=== PATIENT | male | born 1975 | race Caucasian/White ===

== ENCOUNTER 2019-11-26 23:08 | Emergency (ER) | payer OTHER ==
[~2019-11-26] VITALS: Ht 167.6 cm; Wt 99.8 kg
[2019-11-26 23:16] VITALS: BP 149/89
[2019-11-26] MEDS ORDERED: LIDOCAINE VISCOUS 2% 20 ML UDC MM ONE (23:55)
[2019-11-27 00:06] VITALS: BP 154/86
--- NOTE | 2019-11-27 00:07 | NUR ---
Patient discharged with v/s stable. Written and verbal after care instructions given and explained. Patient verbalized understanding. Ambulatory with steady gait. All questions addressed prior to discharge. Advised to follow up with PMD.
== END 2019-11-27 00:07 | disposition home or self-care (01) ==
LOC: MED 23:08
DX: J38.7 Other diseases of larynx (principal)
CPT/HCPCS: 99284

== ENCOUNTER 2020-04-06 17:02 | Emergency (ER) | payer OTHER ==
[~2020-04-06] VITALS: Ht 167.6 cm; Wt 106.6 kg
[2020-04-06 17:19] VITALS: BP 156/91
--- NOTE | 2020-04-06 17:50 | NUR ---
To ED bed 06
--- NOTE | 2020-04-06 17:59 | NUR ---
44 year old male c/o lower back pain that started x 3 days. states pain is progressively getting worse. ROM intact. denies dysuria. denies any other s/sx. pmhx: denies nka
[2020-04-06] MEDS ORDERED: KETOROLAC 30 MG/ML VIAL IM ONE (18:10)
[2020-04-06] MEDS ORDERED: diazePAM 5 MG TAB PO ONE (18:10)
--- NOTE | 2020-04-06 18:28 | NUR ---
pt taken to xray via w/c
--- NOTE | 2020-04-06 18:30 | NUR ---
returned from xr
[2020-04-06 19:27] LABS: APPEARANCE,URINE HAZY (CLEAR); BILIRUBIN,URINE NEGATIVE (NEGATIVE); BLOOD, URINE TRACE-I (NEGATIVE); COLOR,URINE YELLOW (YELLOW); LEUKOCYTE ESTERASE ,URINE NEGATIVE (NEGATIVE); NITRITE, URINE NEGATIVE (NEGATIVE); PH,URINE 6.5 (5.0-9.0); UGLUCOSE NEGATIVE (NEGATIVE)
--- NOTE | 2020-04-06 19:30 | NUR ---
REPORT RECEIVED FROM PRINCESS FONG FOR CONTINUATION OF CARE.
[2020-04-06 19:43] LABS: WBC,URINE 0-5 /HPF (0-5)
--- NOTE | 2020-04-06 21:05 | NUR ---
PT STATES PAIN IS GONE AT THIS TIME, ERMD MADE AWARE OF PT STATUS.
[2020-04-06 21:13] VITALS: BP 138/85
--- NOTE | 2020-04-06 21:13 | NUR ---
Patient discharged with v/s stable. Written and verbal after care instructions given and explained. Patient alert, oriented and verbalized understanding of instructions. Ambulatory with steady gait. All questions addressed prior to discharge. ID band removed. Patient advised to follow up with PMD. Rx of LIDODERM, NAPROSYNN & VALIUM given. Patient educated on indication of medication including possible reaction and side effects. Opportunity to ask questions provided and answered.
== END 2020-04-06 21:13 | disposition home or self-care (01) ==
LOC: MED 17:02
DX: M54.5 Low back pain (principal)
CPT/HCPCS: 72100; 74176; 81001; 87086; 96372; 99285; J1885; Q0092; 99284

== ENCOUNTER 2021-02-16 15:33 | Emergency (ER) | payer OTHER ==
[~2021-02-16] VITALS: Ht 170.2 cm; Wt 108.9 kg
[2021-02-16 15:43] VITALS: BP 141/96
--- NOTE | 2021-02-16 16:30 | NUR ---
NO ANSWER WHEN CALLED.
--- NOTE | 2021-02-16 17:56 | NUR ---
PT CAME BACK TO ER ADMITTING WINDOW SEEKING TREATMENT.
[2021-02-16] MEDS ORDERED: OMEP40EC23 PO (18:18)
== END 2021-02-16 16:30 | disposition left against medical advice (07) ==
LOC: MED 15:33
DX: R10.13 Epigastric pain (principal); Z53.21 Procedure and treatment not carried out due to patient leaving prior to being seen by health care provider
CPT/HCPCS: 93005

== ENCOUNTER 2021-02-16 18:14 | Emergency (ER) | payer OTHER ==
[2021-02-16] MEDS ORDERED: OMEP40EC23 PO (18:18)
--- NOTE | 2021-02-16 18:35 | NUR ---
NO NURSING CARE RENDERED
--- NOTE | 2021-02-16 18:51 | NUR ---
Patient discharged with v/s stable. Written and verbal after care instructions given and explained. Patient alert, oriented and verbalized understanding of instructions. Ambulatory with steady gait. All questions addressed prior to discharge. ID band removed. Patient advised to follow up with PMD. Rx of OMEPRAZOLE given. Patient educated on indication of medication including possible reaction and side effects. Opportunity to ask questions provided and answered.
== END 2021-02-16 18:51 | disposition home or self-care (01) ==
LOC: MED 18:14
DX: K21.9 Gastro-esophageal reflux disease without esophagitis (principal)
CPT/HCPCS: 99283

== ENCOUNTER 2021-04-17 15:03 | Emergency (ER) | payer OTHER ==
[~2021-04-17] VITALS: Ht 167.6 cm; Wt 108.9 kg
[~2021-04-17 15:03] MED LIST: OMEP40EC23 PO
[2021-04-17 15:27] VITALS: BP 127/70
--- NOTE | 2021-04-17 15:34 | NUR ---
45/M BIBS C/O COUGH X 2 WEEKS. DENIES N/V/D; SKIN IS PINK/WARM/DRY; AAOX4 WITH EVEN AND STEADY GAIT; LUNGS CLEAR BL; HR EVEN AND REGULAR; PT DENIES ANY FEVER, CP, SOB AT THIS TIME; PATIENT STATES PAIN OF 0/10 AT THIS TIME; VSS.
[2021-04-17] MEDS ORDERED: ALBU0.0912 IH (15:53)
[2021-04-17] MEDS ORDERED: AZIT250T4 PO (15:53)
[2021-04-17] MEDS ORDERED: PROM118S5 PO (15:53)
[2021-04-17 15:59] VITALS: BP 127/70
--- NOTE | 2021-04-17 15:59 | NUR ---
Patient discharged with v/s stable. Written and verbal after care instructions given and explained. Patient alert, oriented and verbalized understanding of instructions. Ambulatory with steady gait. All questions addressed prior to discharge. ID band removed. Patient advised to follow up with PMD. Rx of PROVENTIL, ZITHROMAX & PROMETHAZINE given. Patient educated on indication of medication including possible reaction and side effects. Opportunity to ask questions provided and answered.
== END 2021-04-17 15:59 | disposition home or self-care (01) ==
LOC: MED 15:03
DX: J40 Bronchitis, not specified as acute or chronic (principal); R05.9 Cough, unspecified; Z79.899 Other long term (current) drug therapy
CPT/HCPCS: 99283

== ENCOUNTER 2021-04-22 09:48 | Emergency (ER) | payer OTHER ==
[~2021-04-22] VITALS: Ht 167.6 cm; Wt 106.6 kg
[~2021-04-22 09:48] MED LIST changes: +ALBU0.0912 IH; +AZIT250T4 PO; +PROM118S5 PO
[2021-04-22 10:20] VITALS: BP 145/95
--- NOTE | 2021-04-22 10:24 | NUR ---
TENT 1
--- NOTE | 2021-04-22 10:30 | NUR ---
C/O COUGH X 1 MONTH , 8/10 SORE THROAT X 3 WEEK. SEEN HERE LAST WEEK SAME S/S.
[2021-04-22] MEDS ORDERED: BENZONATATE 100 MG CAPLF PO SCH (11:25)
[2021-04-22] MEDS ORDERED: AMOXIL/CLAVULANATE 875/125 MG 1 TAB PO ONE (11:25)
[2021-04-22] MEDS ORDERED: BENZ-196 PO (12:07)
[2021-04-22] MEDS ORDERED: AMOX-1000 PO (12:07)
[2021-04-22] MEDS ORDERED: PRED20TA5 PO (12:07)
[2021-04-22 12:19] VITALS: BP 145/95
== END 2021-04-22 12:19 | disposition home or self-care (01) ==
LOC: MED 09:48
DX: J40 Bronchitis, not specified as acute or chronic (principal); Z79.899 Other long term (current) drug therapy
CPT/HCPCS: 71046; 99283

== ENCOUNTER 2021-04-25 22:34 | Emergency (ER) | payer OTHER ==
[~2021-04-25] VITALS: Ht 167.6 cm; Wt 104.3 kg
[~2021-04-25 22:34] MED LIST changes: +AMOX-1000 PO; -AZIT250T4 PO; +BENZ-196 PO; +PRED20TA5 PO; -PROM118S5 PO
[2021-04-25 22:44] VITALS: BP 122/72
--- NOTE | 2021-04-25 22:44 | NUR ---
to bed ambulatory
[2021-04-25] MEDS ORDERED: ALBUTEROL HFA MDI 90 MCG/ACTUATION 8 GM INH ONE (23:00)
[2021-04-25] MEDS ORDERED: BENZONATATE 100 MG CAPLF PO ONE (23:00)
--- NOTE | 2021-04-25 23:00 | NUR ---
45 YO M BIB SELF WITH C/C OF BROCHITIS COUGH X1 MONTH AND RUQ-LUQ ABD PAIN D/T COUGH 10/10X MOS. STATES HE IS SOB. LUNG SOUNDS CLEAR, SATING AT 98% RA. ABD PAIN FEELS LIKE TWISTING PER PT, RAD FROM SIDE TO SIDE. ABD IS ROUND AND SOFT, BOWEL SOUND ACTIVE X4 QUAD, AND TENDER TO TOUCH. +DIARRHEA X2WKS, STATES EVERY TIME HE URINATES HE HAS DIARRHEA WELL. STATES HE IS UNABLE TO EAT OR SLEEP. DENIES N/V. DIAPHORETIC AT NIGHT PER PT. DENIES HX, RX AND ALLERG
--- NOTE | 2021-04-25 23:03 | NUR ---
RAD AND LAB AT BEDSIDE.
[2021-04-25 23:13] LABS: BASOPHILS % (AUTO) 0.2 % (0.0-2.0); HEMATOCRIT 47.1 % (36-52); HEMOGLOBIN 16.3 g/dL (12.0-18.0); LYMPHOCYTES # (AUTO) 0.5 K/uL (2.0-11.5); LYMPHOCYTES % (AUTO) 13.1 % (20.5-51.1); MEAN CORPUSCULAR HEMOGLOBIN 30 pg (27-31); MEAN CORPUSCULAR HGB CONC 35 g/dL (33-37); MEAN CORPUSCULAR VOLUME 85.8 fL (80-94); MONOCYTES # (AUTO) 0.2 K/uL (0.8-1.0); NEUTROPHILS # (AUTO) 3.4 K/uL (1.8-7.7); NEUTROPHILS % (AUTO) 82.7 % (42.2-75.2); PLATELET COUNT (AUTO) 113 K/uL (140-450); RED BLOOD CELL COUNT(AUTO) 5.49 MIL/uL (4.20-6.10); RED CELL DISTRIBUTION WIDTH 13.3 % (11.6-13.7); WHITE BLOOD COUNT (AUTO) 4.2 K/uL (4.8-10.8)
[2021-04-25 23:28] LABS: ANION GAP 11.3 (8-16); CARBON DIOXIDE 27.6 mmol/L (21-32); POTASSIUM 3.9 mmol/L (3.5-5.1); TOTAL BILIRUBIN 0.7 mg/dL (0.0-1.0)
--- NOTE | 2021-04-26 00:25 | NUR ---
ROSI COLLECTED AND TAKEN TO LAB.
[2021-04-26] MEDS ORDERED: ALBU0.0912 INH (00:59)
[2021-04-26] MEDS ORDERED: BENZ-196 PO (00:59)
[2021-04-26] MEDS ORDERED: DOXY-690 PO (01:03)
[2021-04-26 01:20] VITALS: BP 112/58
--- NOTE | 2021-04-26 01:20 | NUR ---
Patient discharged with v/s stable. Written and verbal after care instructions given and explained. Patient alert, oriented and verbalized understanding of instructions. Ambulatory with steady gait. All questions addressed prior to discharge. ID band removed. Patient advised to follow up with PMD. Rx of ALBUTEROL, BENZONATATE, AND DOXYCYCLINE given. Patient educated on indication of medication including possible reaction and side effects. Opportunity to ask questions provided and answered.
== END 2021-04-26 01:20 | disposition home or self-care (01) ==
LOC: MED 22:34
DX: J18.9 Pneumonia, unspecified organism (principal); R19.7 Diarrhea, unspecified; R74.01 Elevation of levels of liver transaminase levels; R73.9 Hyperglycemia, unspecified; Z20.822 Contact with and (suspected) exposure to COVID-19
CPT/HCPCS: 36415; 71045; 80053; 83690; 85025; 87426; 94640; 99284; Q0092

== ENCOUNTER 2021-12-30 15:30 | Emergency (ER) | payer OTHER ==
[~2021-12-30] VITALS: Ht 167.6 cm; Wt 114.8 kg
[~2021-12-30 15:30] MED LIST changes: +ALBU0.0912 INH; +DOXY-690 PO
[2021-12-30 15:54] VITALS: BP 146/87
[2021-12-30] MEDS ORDERED: KETOROLAC 30 MG/ML VIAL IM ONE (16:00)
--- NOTE | 2021-12-30 16:10 | NUR ---
WALKED IN C/O RIGHT TOE PAIN AFTER A PIECE OF WOOD FELL ON HIS FOOT WHILE CUTTING. BIG TOE NAIL IS BROKEN. STATES UTD TDAP. VITALS STABLE, DENIES DM, AAOX4, AMBULATORY, VITALS STABLE
--- NOTE | 2021-12-30 16:20 | NUR ---
XR AT BEDSIDE
[2021-12-30 17:03] VITALS: BP 141/83
== END 2021-12-30 17:03 | disposition home or self-care (01) ==
LOC: MED 15:30
DX: S90.111A Contusion of right great toe without damage to nail, initial encounter (principal); Z79.899 Other long term (current) drug therapy; Z98.890 Other specified postprocedural states; W22.8XXA Striking against or struck by other objects, initial encounter; Y93.89 Activity, other specified; Y92.89 Other specified places as the place of occurrence of the external cause; Y99.8 Other external cause status
CPT/HCPCS: 73660; 96372; 99283; J1885

== ENCOUNTER 2022-01-06 00:50 | Emergency (ER) | payer OTHER ==
[~2022-01-06] VITALS: Ht 167.6 cm; Wt 108.9 kg
[2022-01-06 00:57] VITALS: BP 146/92
--- NOTE | 2022-01-06 01:01 | NUR ---
Patient waited in lobby.
--- NOTE | 2022-01-06 04:41 | NUR ---
Dr. Acosta examining patient.
[2022-01-06] MEDS ORDERED: CEPH-588 PO (04:50)
[2022-01-06] MEDS ORDERED: IBUP-2213 PO (04:50)
[2022-01-06 05:14] VITALS: BP 135/82
--- NOTE | 2022-01-06 05:14 | NUR ---
Patient discharged with v/s stable. Written and verbal after care instructions given and explained for ingrown toenail. Patient alert, oriented and verbalized understanding of instructions. Ambulatory with steady gait. All questions addressed prior to discharge. ID band removed. Patient advised to follow up with PMD. Rx of Keflex and Ibuprofen given. Patient educated on indication of medication including possible reaction and side effects. Opportunity to ask questions provided and answered.
== END 2022-01-06 05:14 | disposition home or self-care (01) ==
LOC: MED 00:50
DX: L60.0 Ingrowing nail (principal); Z79.899 Other long term (current) drug therapy
CPT/HCPCS: 99283

== ENCOUNTER 2022-01-12 11:26 | Emergency (ER) | payer OTHER ==
[~2022-01-12] VITALS: Ht 167.6 cm; Wt 96.2 kg
[~2022-01-12 11:26] MED LIST changes: +CEPH-588 PO; +IBUP-2213 PO
[2022-01-12 11:30] VITALS: BP 165/91
--- NOTE | 2022-01-12 11:36 | NUR ---
PT WAITING IN THE LOBBY
--- NOTE | 2022-01-12 12:08 | NUR ---
PT'S RIGHT TOE DRESSED WITH NON-ADHERENT GAUZE AND WRAPPED WITH 4X4 GAUZE AND TAPE. RN NOTIFIED.
--- NOTE | 2022-01-12 12:12 | NUR ---
PT PROVIDED WITH DISCHARGE INSTRUCTIONS FOR INGROWN TOENAIL. ALL QUESTIONS ASKED AND ANSWERED PRIOR TO D/C. PT AMBULATORY.
== END 2022-01-12 12:12 | disposition home or self-care (01) ==
LOC: MED 11:26
DX: L60.0 Ingrowing nail (principal); Z48.02 Encounter for removal of sutures; Z79.899 Other long term (current) drug therapy; Z59.00 Homelessness unspecified
CPT/HCPCS: 99283

== ENCOUNTER 2023-09-13 08:27 | Emergency (ER) | payer SELFPAY ==
[~2023-09-13] VITALS: Ht 167.6 cm; Wt 97.5 kg
[2023-09-13 08:32] VITALS: BP 163/93; PULSE 88; RESP 16; TEMP 97.2; O2SAT 99
[2023-09-13 08:50] VITALS: O2SAT 99
[2023-09-13] MEDS ORDERED: PRED20TA5 PO (08:54)
[2023-09-13] MEDS ORDERED: IBUP-2213 PO (08:54)
[2023-09-13] MEDS ORDERED: PSEU120T22 PO (08:54)
[2023-09-13 09:05] VITALS: BP 145/82; PULSE 88; RESP 16; TEMP 98; O2SAT 99
== END 2023-09-13 09:05 | disposition home or self-care (01) ==
LOC: MED 08:27
DX: J06.9 Acute upper respiratory infection, unspecified (principal); Z79.899 Other long term (current) drug therapy
CPT/HCPCS: 99283